=== PATIENT | female | born 1990 | race Caucasian/White ===

== ENCOUNTER 2024-09-03 14:05 | Inpatient (IN) | payer MEDICAID, OTHER, SELFPAY ==
[~2024-09-03] VITALS: Ht 170.2 cm; Wt 80.4 kg
[2024-09-03 15:20] LABS: HEMATOCRIT 45.1 % (36.0-47.0); HEMOGLOBIN 15.3 g/dl (12.0-15.5); MEAN CORPUSCULAR HEMOGLOBIN 30.9 pg (27.0-33.0); MEAN CORPUSCULAR HGB CONC 33.9 g/dl (32.0-36.5); MEAN CORPUSCULAR VOLUME 91.1 fl (80.0-96.0); PLATELET COUNT, AUTOMATED 286 10^3/uL (150-450); RED BLOOD COUNT 4.95 10^6/uL (4.00-5.40); WHITE BLOOD COUNT 9.2 10^3/uL (4.0-10.0)
[2024-09-03 15:50] LABS: BARBITURATES URINE NEGATIVE (NEGATIVE); BENZODIAZEPINES URINE NEGATIVE (NEGATIVE); COCAINE METABOLITE URINE NEGATIVE (NEGATIVE); METHADONE URINE NEGATIVE (NEGATIVE); OPIATES URINE NEGATIVE (NEGATIVE); PHENCYCLIDINE URINE NEGATIVE (NEGATIVE)
[2024-09-03 15:51] LABS: AMPHETAMINES LEVEL URINE POSITIVE (NEGATIVE); CANNABINOIDS URINE POSITIVE (NEGATIVE)
[2024-09-03 15:53] LABS: ETHYL ALCOHOL (ETHANOL) < 0.003 % (0.000-0.010)
[2024-09-03 15:54] LABS: ALBUMIN 3.8 G/DL (3.2-5.2); ALKALINE PHOSPHATASE 73 U/L (35-104); ALT/SGPT 33 U/L (7.0-40); AST/SGOT 14 U/L (<34); BILIRUBIN,DIRECT 0.2 MG/DL (<0.4); BILIRUBIN,TOTAL 0.4 MG/DL (0.3-1.2); BLOOD UREA NITROGEN 8 MG/DL (9-23); CALCIUM LEVEL 9.6 MG/DL (8.5-10.1); CARBON DIOXIDE LEVEL 28 MMOL/L (20-31); CHLORIDE LEVEL 110 MMOL/L (98-107); CREATININE FOR GFR 0.83 MG/DL (0.55-1.30); GLOMERULAR FILTRATION RATE > 60.0 (>60); GLUCOSE, FASTING 64 MG/DL (60-100); POTASSIUM SERUM 3.9 MMOL/L (3.5-5.1); SALICYLATE LEVEL < 3.0 MG/DL (<30); SODIUM LEVEL 144 MMOL/L (136-145); TOTAL PROTEIN 7.1 G/DL (5.7-8.2)
[2024-09-03 15:56] LABS: THYROID STIMULATING HORMONE 0.439 uIU/ML (0.55-4.78)
[2024-09-03 16:02] LABS: HCG, SERUM QUALITATIVE NEGATIVE (NEGATIVE)
[2024-09-03] MEDS ORDERED: HOME MED LIST COMPLETE! XX SCH (16:10)
[2024-09-03] MEDS: NICOTINE 21MG/24HR 1 EA TRANSDERMAL TD ONE (19:48)
[2024-09-03] MEDS ORDERED: MOM 30ML SUSPENSION UDC PO PRN (20:05)
[2024-09-03] MEDS ORDERED: diphenhydrAMINE 25MG CAP PO PRN (20:05)
[2024-09-03] MEDS ORDERED: MAALOX 30 ML SUSP *UDC PO PRN (20:05)
[2024-09-03] MEDS: traZODone 50 MG TAB PO PRN (22:11)
[2024-09-04] MEDS ORDERED: HOME MED LIST COMPLETE! XX SCH (04:30)
[2024-09-04 06:31] VITALS: BP 111/63; TEMP 98.1; O2SAT 96
[2024-09-04] MEDS: NICOTINE POLACRILEX 2 MG GUM PO PRN (08:56)
[2024-09-04] MEDS: OLANZapine 5 MG TAB PO SCH (10:21)
[2024-09-04] MEDS: diphenhydrAMINE 50MG CAP PO PRN (11:21)
[2024-09-04] MEDS: LORazepam 2 MG TAB PO PRN (11:21)
[2024-09-04 17:43] VITALS: BP 135/95; TEMP 97.9; O2SAT 99
[2024-09-05] MEDS: NICOTINE POLACRILEX 2 MG GUM PO PRN (05:55)
[2024-09-05 06:36] VITALS: BP 106/67; TEMP 97; O2SAT 96
[2024-09-05 06:52] LABS: CHOLESTEROL RISK RATIO 2.65 (<5); HDL CHOLESTEROL 43.7 MG/DL (>40); LDL CHOLESTEROL 60.3 MG/DL (<100); NON-HDL-C 72.3 MG/DL
[2024-09-05 15:36] VITALS: BP 115/56; TEMP 98.5; O2SAT 96
[2024-09-05] MEDS: NICOTINE 21MG/24HR 1 EA TRANSDERMAL TD PRN (16:12)
[2024-09-06 06:18] VITALS: BP 102/59; TEMP 97.8; O2SAT 98
[2024-09-06] MEDS: NICOTINE 21MG/24HR 1 EA TRANSDERMAL TD SCH (08:58)
[2024-09-06 10:55] LABS: APPEARANCE, URINE CLEAR (CLEAR); BACTERIA, URINE AUTO NEGATIVE (NEGATIVE); BILIRUBIN, URINE AUTO NEGATIVE (NEGATIVE); BLOOD, URINE BLOOD 1+ (NEGATIVE); COLOR, URINE STRAW (YELLOW); GLUCOSE, URINE (UA) AUTO NEGATIVE (NEGATIVE); KETONE, URINE AUTO NEGATIVE (NEGATIVE); LEUKOCYTE ESTERASE, URINE AUTO 3+ (NEGATIVE); NITRITE, URINE AUTO NEGATIVE (NEGATIVE); PROTEIN, URINE AUTO NEGATIVE (NEGATIVE); RBC, URINE AUTO 0 /HPF (0-3); SPECIFIC GRAVITY URINE AUTO 1.001 (1.002-1.035); SQUAMOUS EPITHELIAL CELL UR AU 0 /HPF (0-6); UROBILINOGEN, URINE AUTO 0.2 mg/dL (0.0-2.0); WBC, URINE AUTO 10 /HPF (0-3)
[2024-09-06 15:36] VITALS: BP 129/85; TEMP 98.3; O2SAT 99
[2024-09-06] MEDS: OLANZapine 2.5MG TABLET PO SCH (19:39)
[2024-09-07 06:28] VITALS: BP 90/51; TEMP 97.4; O2SAT 98
[2024-09-07 15:19] VITALS: BP 123/70; TEMP 98; O2SAT 96
[2024-09-08 06:39] VITALS: BP 114/55; TEMP 97.6; O2SAT 98
[2024-09-08] MEDS: ACETAMINOPHEN 325 MG TAB PO PRN (15:10)
[2024-09-08 15:44] VITALS: BP 122/76; TEMP 98.9; O2SAT 97
[2024-09-08] MEDS: PHENAZOPYRIDINE 100 MG TAB PO SCH (16:44)
[2024-09-08 16:52] LABS: Trichomonas vaginalis (AMP) NOT DETECTED (NEGATIVE)
[2024-09-08 17:15] LABS: GC DNA AMPLIFICATION NEGATIVE (NEGATIVE)
[2024-09-08] MEDS: IBUPROFEN 400MG TAB PO PRN (20:03)
[2024-09-08] MEDS: PALIPERIDONE 3MG ER TAB (INVEGA) PO SCH (20:03)
[2024-09-09 06:23] VITALS: BP 96/51; TEMP 98.1; O2SAT 100
[2024-09-09 14:59] VITALS: BP 131/61; TEMP 97.5; O2SAT 95
[2024-09-10 06:24] VITALS: BP 123/63; TEMP 98; O2SAT 95
[2024-09-10 16:13] VITALS: BP 136/84; TEMP 97.7; O2SAT 98
[2024-09-10] MEDS: CEFDINIR 300 MG CAP (OMNICEF) PO SCH (20:08)
[2024-09-10] MEDS: PALIPERIDONE 6MG ER TAB (INVEGA) PO SCH (20:09)
[2024-09-10] MEDS: SENOKOT S TAB PO SCH (20:09)
[2024-09-11 06:43] VITALS: BP 106/59; TEMP 97; O2SAT 99
[2024-09-11] MEDS: PALIPERIDONE 3MG ER TAB (INVEGA) PO SCH (08:33)
[2024-09-11 18:44] VITALS: BP 120/59; TEMP 98.3; O2SAT 97
[2024-09-12 06:29] VITALS: BP 120/57; TEMP 97.9; O2SAT 96
[2024-09-12] MEDS: PALIPERIDONE PAL 234MG/1.5ML INJ (INVEGA)(FREE PSY INPT ONLY) IM ONE (11:54)
[2024-09-12 15:32] VITALS: BP 127/68; TEMP 98.5; O2SAT 99
[2024-09-13 06:29] VITALS: BP 131/73; TEMP 96.4; O2SAT 99
[2024-09-13] MEDS ORDERED: NICOTINE 21MG/24HR 1 EA TRANSDERMAL TD SCH (09:00)
[2024-09-13 15:03] VITALS: BP 123/90; TEMP 98.3; O2SAT 98
[2024-09-14 06:20] VITALS: BP 117/56; TEMP 97.4; O2SAT 95
[2024-09-15 06:27] VITALS: BP 95/48; TEMP 97; O2SAT 94
[2024-09-15 06:47] VITALS: BP 110/52
[2024-09-15 15:41] VITALS: BP 149/66; TEMP 98.4; O2SAT 97
[2024-09-16] MEDS ORDERED: PALIPERIDONE PAL 156MG/1ML INJ(INVEGA)(FREE PSY INPT ONLY) IM ONE (09:40)
[2024-09-16] MEDS: PALIPERIDONE PAL 156MG/1ML INJ(INVEGA)(FREE PSY INPT ONLY) IM ONE (10:45)
[2024-09-16] MEDS: NALTREXONE 50 MG TAB PO SCH (11:07)
[2024-09-16 16:28] VITALS: BP 128/80; TEMP 98.3; O2SAT 98
[2024-09-17] MEDS ORDERED: INVE234I IM (11:39)
[2024-09-17] MEDS ORDERED: SENN-52 PO (11:39)
[2024-09-17] MEDS ORDERED: NALT50TA4 PO (11:39)
== END 2024-09-17 14:23 | disposition home or self-care (01) | DRG 751 ==
LOC: M ED 14:05 → M ED INP 20:02 → M PSY 21:48
PROVIDERS: ADMIT Psychiatry & Neurology Psychiatry; ATTEND Psychiatry & Neurology Psychiatry
DX: F29 Unspecified psychosis not due to a substance or known physiological condition (principal); F12.90 Cannabis use, unspecified, uncomplicated; F15.90 Other stimulant use, unspecified, uncomplicated; F20.9 Schizophrenia, unspecified; R45.851 Suicidal ideations; R45.850 Homicidal ideations; Z59.00 Homelessness unspecified